=== PATIENT | female | born 1995 | race Caucasian/White ===

== ENCOUNTER 2018-03-31 23:20 | Emergency (ER) | payer MEDICAID ==
[~2018-03-31] VITALS: Ht 152.4 cm; Wt 97.1 kg
[2018-03-31 23:31] VITALS: Ht 152.4 cm; Wt 97.1 kg
[2018-04-01 01:43] VITALS: BP 138/81
== END 2018-04-01 01:43 | disposition home or self-care (01) ==
LOC: ED 23:20
DX: M25.512 Pain in left shoulder (principal); M62.838 Other muscle spasm
CPT/HCPCS: J1885

== ENCOUNTER 2018-11-18 16:54 | Emergency (ER) | payer MEDICAID ==
[~2018-11-18] VITALS: Ht 152.4 cm; Wt 87.1 kg
[2018-11-18 17:22] VITALS: Ht 152.4 cm; Wt 87.1 kg
[2018-11-18 18:32] LABS: UA SPECIFIC GRAVITY 1.025 (1.005-1.035); microscopic required? YES; urine erythrocyte TRACE (NEGATIVE)
[2018-11-18 18:33] LABS: BASOPHIL % 0.2 % (0-2); PLATELET COUNT 227 x10^3mcL (130-400); RED CELL DISTRIBUTION WIDTH 13.3 % (11.5-14.5)
[2018-11-18 18:42] LABS: CALCIUM 8.6 mg/dL (8.5-10.1); CARBON DIOXIDE 27.7 mmol/L (21-32); CHLORIDE SERUM 103 mmol/L (98-107); CREATININE SERUM 0.7 mg/dL (0.6-1.0); GFR1 > 60 mL/min; GLUCOSE SERUM 111 mg/dL (74-106); POTASSIUM SERUM 3.8 mmol/L (3.5-5.1); SODIUM SERUM 139 mmol/L (136-145)
[2018-11-18 18:46] LABS: ALKALINE PHOSPHATASE 64 U/L (46-116); ALT/SGPT 25 U/L (14-59); AST/SGOT 24 U/L (15-37); BILIRUBIN TOTAL 0.31 mg/dL (0.20-1.00); TOTAL PROTEIN, SERUM 7.5 g/dL (6.4-8.2)
[2018-11-18 18:48] LABS: ALBUMIN 3.3 g/dL (3.4-5.0)
[2018-11-18 19:13] VITALS: BP 139/78
== END 2018-11-18 19:13 | disposition home or self-care (01) ==
LOC: ED 16:54
PROVIDERS: Emergency Medicine
DX: N39.0 Urinary tract infection, site not specified (principal); L98.9 Disorder of the skin and subcutaneous tissue, unspecified
CPT/HCPCS: 36415; J1885

== ENCOUNTER 2018-11-25 22:37 | Emergency (ER) | payer MEDICAID ==
[~2018-11-25] VITALS: Ht 152.4 cm; Wt 87.1 kg
[2018-11-25 22:42] VITALS: Ht 152.4 cm; Wt 87.1 kg
[2018-11-26 01:03] LABS: microscopic required? NO
[2018-11-26 02:13] VITALS: BP 114/71
[2018-11-26 02:16] LABS: urine erythrocyte NEGATIVE (NEGATIVE)
== END 2018-11-26 02:03 | disposition home or self-care (01) ==
LOC: ED 22:37
PROVIDERS: Emergency Medicine
DX: R10.2 Pelvic and perineal pain (principal); N89.8 Other specified noninflammatory disorders of vagina; R39.198 Other difficulties with micturition
CPT/HCPCS: 87491; 87591; J1885

== ENCOUNTER 2019-05-29 17:18 | Emergency (ER) | payer MEDICAID ==
[~2019-05-29] VITALS: Ht 157.5 cm; Wt 86.2 kg
[2019-05-29 17:27] VITALS: BP 118/64; Ht 157.5 cm; Wt 86.2 kg
== END 2019-05-29 18:40 | disposition home or self-care (01) ==
LOC: ED 17:18
DX: R30.0 Dysuria (principal); Z11.3 Encounter for screening for infections with a predominantly sexual mode of transmission
CPT/HCPCS: 87491; 87591; J0696